=== PATIENT | male | born 1985 | race Hispanic/Latino ===

== ENCOUNTER 2017-07-24 04:44 | Emergency (ER) | payer OTHER ==
[~2017-07-24] VITALS: Ht 165.1 cm; Wt 65.4 kg
[~2017-07-24 04:44] MED LIST: BENTYL20 MG PO; METAMUCIL POWD798 GM PO; NO HOME MEDS; OMEPRAZOLE20 MG PO; PROMETHAZINE HC25 M1 PO; ZOFRAN ODT4 MG PO
[2017-07-24] MEDS ORDERED: FIORICET 50-301 EACH PO (07:08)
[2017-07-24 07:32] VITALS: BP 118/71
== END 2017-07-24 07:37 | disposition home or self-care (01) ==
LOC: EME 04:44
DX: R51 Headache (principal); Z87.891 Personal history of nicotine dependence
CPT/HCPCS: 99281; 99284; J1100; J1200; J1885; J2765; J7030